=== PATIENT | female | born 1945 | race Two or more races ===

== ENCOUNTER → 2017-04-23 | Outpatient (CLI) | payer MEDICARE, OTHER ==
[~2017-04-23] MED LIST: ALBU8HFA4 IH; ALPR0.255 PO; ASCO500 PO; ASPI-1188 PO; CARB-101 PO; DIATRIZOATE MEGLU/SOD 660/100 MG/ML 120 ML BOTTLE ONE; FERR1TAB24 PO; MULT1CAP32 PO; OMEP20CA10 PO; PRAV10TA39 PO
== END | disposition home or self-care (01) ==
LOC: RADMN 09:03
PROVIDERS: ATTEND Internal Medicine Geriatric Medicine
DX: Z43.1 Encounter for attention to gastrostomy (principal)
CPT/HCPCS: 36245; 49450; C1769; Q9963